=== PATIENT | female | born 1945 | race Caucasian/White ===

== ENCOUNTER 2017-01-13 16:37 | Emergency (ER) | payer MEDICARE, OTHER ==
[~2017-01-13] VITALS: Ht 167.6 cm; Wt 47.6 kg
[~2017-01-13 16:37] MED LIST: BACTRIM DS 8001 TA1 PO; BENADRYL ALLERG25 M1 PO; CHLORTHALIDONE50 MG PO; FOLIC ACID 1MG T1 MG PO; HYDROCODONE-APA1 TA1 PO; KEFLEX 500MG.500 MG PO; METHOTREXATE 22.5 MG PO; PREDNISONE 5MG.5 MG PO; PREDNISONE50 MG PO; ZANTAC 300300 MG PO
--- NOTE | 2017-01-13 16:57 | Emergency Room Report ---
History of Present Illness Time Seen by MD Diamond Presenting Problem in Triage Pt arrived:Walked Presenting Problem:PT STATES THAT SHE HAS BEEN TAKING 2 MEDICATIONS (NEURONTIN AND TRILEPTAL) FOR THE LAST MONTH AND A HALF AND IN THAT TIME SHE HAS BENE HAVING DIFFICULTY TAKING THEM DUE TO HER THROAT SWELLING. TODAY SHE THINKS THAT THE PROBLEM IS WORSE AND SHE FELLS THAT HER THROAT IS SELLING MORE Onset of symptoms date/time:01/13/17 or onset unknown for: Treatment Prior to Arrival: [facility] [employer] Provided by: Sepsis Risk Assessment: Temp: 98.4 B/P: 178/109 MAP: 132 Pulse: 94 Resp: 16 Recent fever? N Clinical Suspician of Infection? N Mental Status: 1 - Regular (Normal Baseline) Sepsis Risk:Low Sepsis Risk Have you (or family members/close friends) recently traveled outside the [place]? N If Yes, where/when: Have you had exposure to infectious disease within the past month? N TB? Other? Specify: Patient has been on oxcarbazepine for trigeminal neuralgia and is having difficulty swallowing her pills. Feels like her pills may be stuck, but not having shawn swelling, and no difficulty eating or drinking today. No edema to face or eyes, no vomiting, no SOB. Trigeminal neuralgia improving . No drooling. No prior hx of dysphagia. ALLERGIES Coded Allergies: No Known Allergies (06/27/16) Home Medications Reported Medications Prednisone (Prednisone 5MG) 5 MG PO DAILY FOLIC ACID (Folic Acid) 1 MG PO DAILY History Medical History General CAD? No Angina: No VA: No Hypertension? Yes Hyperlipidemia? Yes CHF? No DVT? No PE? No COPD? No Asthma? No Anemia? No GERD? No Gastric ulcers? No GI Bleed? No Hernia? No Thyroid Problems? No Hypothyroidism? No CVA? No Seizures? No Diabetes? No Renal Insuffiency? No End Stage Renal Disease? No UTI? No Stones? No BPH? No GB Disease: No Nephritic Syndrome? No Asplenia? No Hepatitis? No Sickle Cell Disease? No Arthritis? No Migraines? No Cataracts? No Glaucoma? No MRSA? No HIV? No TB? No Anxiety? No Depression? No Cancer? No Immunization Hx DT/Tetanus UNKNOWN Flu NEVER Pneumonia NEVER Surgical Hx Previous Surgery?Y COLONOSCOPY X 2 SKIN SPOTS REMOVED Family History Family Hx Diabetes No CAD Yes Hypertension Yes Hyperlipidemia No Cancer Yes TB Yes Social History Smoking Hx Smoker: Current Every Day Smoker Tobacco: Yes Type Cigarettes Packs/day < 1 Pack Alcohol Alcohol: No Review of Systems All Other Systems Reviewed and Negative Gastrointestinal see HPI Psychiatric/Neurological see HPI (no acute neuro changes) Physical Exam Vital Signs Vital Signs Date Time Temp Pulse Resp B/P Pulse O2 O2 Flow FiO2 Ox Delivery Rate 01/13 1652 98.4 01/13 1644 98.4 94 16 178/109 98 General Appearance normal appearance, WD/WN, no apparent distress Eye Exam - bilateral eye normal exam, bilateral eye PERRL Ear, Nose, Throat OP wet, no obstruction or edema, no FB noted. Neck normal inspection, non-tender, supple, full range of motion Respiratory Status Yes: trachea midline, chest symmetrical, non tender chest. No: respiratory distress, tender on palpation, use of accessory muscles, pain on inspiration, pain on expiration, productive cough, non productive cough. Lung Sounds bilateral: normal breath sounds, lungs clear. Cardiovascular normal exam, regular rate/rhythm, no peripheral edema, no gallop, no JVD, no murmur, no rub Extremities normal range of motion Neurologic alert, normal exam, no motor/sensory deficits, oriented x 3 (no drooling or dysphagia) Glascow Coma Scale Glascow Coma Scale Response Value EYE response: 4 Spontaneously 4 MOTOR response: 6 OBEYS 6 VERBAL response: 5 Oriented & Converses 5 Total 15 Skin intact, normal color Medical Decision Making LABS/Meds/Orders Pt receiving controlled substance in ED? No Results/Orders Orders Procedure Date/time Status NECK SOFT TISSUE 01/13 1703 Active XRAY/CT/US XRAY/CT/US XRAY chest (soft tissue neck) XR interpretation by reviewed by me (report reviewed) Xray Results normal/NAD (no radioopaque FB) Progress ED Progress Notes Date 01/13/17 Time 1733 Comment I consulted w/ pharmacy and it's ok for patient to split the oxcarbazepine for ease of swallowing Departure Departure Time of Disposition 1831 Disposition DC Home or Self Care(routine) Clinical Impression Primary Impression: Foreign body sensation in throat Condition STABLE Referrals Russell DODSON,A.C. (Family) Patient Instructions DI for Esophageal Dysphagia Additional Instructions Ok to split up your oxcarbazepine and place in pudding; see your family doctor for follow up Discharge Counseling Counseled pt/family regarding diagnosis, test results, medications/RX, home care, follow up needs ED Critical Care Critical Care No at [id number]
--- OUTSIDE RECORDS SUMMARY | 2017-01-13 17:17 | External Medical Summary Rpt ---
Author Author [employer] Organization [employer] Address Unknown Phone Unavailable Purpose Continuity of Care Document - through 2016
--- OUTSIDE RECORDS SUMMARY | 2017-01-13 17:17 | External Medical Summary Rpt ---
Demographics Preferred Language Estonian Marital Status Unknown Restorationist Affiliation Unknown Race Unknown Ethnic Group Unknown Author Author , ROSE ROSE Address Unknown Phone Immunization Unable to retrieve immunization data due to connection failure with Immunization Registry. Please try again later.
--- OUTSIDE RECORDS SUMMARY | 2017-01-13 17:17 | External Medical Summary Rpt ---
Author Author [employer] Whitney, [employer] Organization [employer] Address Unknown Phone Unavailable
--- OUTSIDE RECORDS SUMMARY | 2017-01-13 17:17 | External Medical Summary Rpt ---
Author Author , ROSE ROSE Address Unknown Phone [email or web address] Support Name Relationship Address Phone TARA, Next Of Kin [address], [phone] [place] [address] Purpose Continuity of Care Document - 02-18-2013 through 2016 Problems Code Diagnosis DOS Provider Status E83.42 Hypomagnese 11-28-2016 hank E87.6 Hypokalemia 11-28-2016 F17.210 Nicotine 11-28-2016 dependence, cigarettes, uncomplicat ed G50.0 Trigeminal 11-28-2016 neuralgia I10 Essential 11-28-2016 (primary) hypertensio n I67.1 Cerebral 11-28-2016 aneurysm, nonruptured M34.9 Systemic 11-28-2016 sclerosis, unspecified H53.8 OTHER 11-24-2016 VISUAL DISTURBANCE S H57.11 OCULAR 11-24-2016 PAIN, RIGHT EYE R51 HEADACHE 11-24-2016 Z91.040 LATEX 11-24-2016 ALLERGY STATUS Allergies, Adverse Reactions, Alerts Type Allergy to substance Adverse Reaction to Substance Substance Reaction Severity NO KNOWN ALLERGIES Unknown Unknown Medications Na ND Rx Da Fi Fi Am Da Di Ph RX Ph St me C No te ll ll ou ys ag ar # ys at rm s nt no ma ic us Or Da si cy ia de te s n re d GAINES 51 09 0 No LF 07 -0 AM 90 2- Lo ET 12 20 ng HO 82 13 er XA 0 ZO Ac LE ti -T ve MP DS TA BL ET CE 62 09 0 No PH 75 -0 AL 60 2- Lo EX 29 20 ng IN 48 13 er 8 50 Ac 0 ti MG ve CA PS UL E HY [address] 07 -0 OX 90 2- Lo YZ 07 20 ng IN 72 13 er E 0 PA Ac M ti 25 ve MG CA P Vital Signs 02-18-2013 14:58 Name Value Interpretat Reference Comment ion Range BP 93 mm[Hg] Diastolic BP Systolic 148 mm[Hg] Heart 94 /min Rate/Pulse O2% 98 % Respiratory 16 /min Rate 02-18-2013 14:57 Name Value Interpretat Reference Comment ion Range Body 97.6 [degF] Temperature BP 109 mm[Hg] Diastolic BP Systolic 159 mm[Hg] Heart 109 /min Rate/Pulse O2% 98 % Respiratory 16 /min Rate Results Labs Lab Lab Date Result Refere Interp Status Commen Order Detail nces retati t Range on 10OH-Carbazepine SerPl-mCnc (12-28-2016 09:54) 10OH-Ca 17.2 8.0-35. complet rbazepi 017 mcg/mL 0 ed ne 09:54 SerPl-m Cnc Magnesium SerPl-mCnc (11-21-2016 15:13) Magnesi 1.7 1.9-2.4 complet um 017 mg/dL ed SerPl-m 15:13 Cnc ESR Bld Qn (11-20-2016 08:51) ESR Bld 2 24 0-20 complet Qn 017 mm/hr ed 08:51 CRP SerPl-mCnc (11-20-2016 08:51) CRP 2 0.5 0-0.9 complet SerPl-m 017 mg/dL ed Cnc 08:51 Encounters Encounter Start End Date Code Location Performer Type Date Emergency HYACINTH Hendrix MD (ER) 3 13:59 3 14:59 [facility]
--- OUTSIDE RECORDS SUMMARY | 2017-01-13 17:17 | External Medical Summary Rpt ---
Demographics Preferred Language Urdu Marital Status Unknown Moravian Affiliation Unknown Race Unknown Ethnic Group Unknown Author Author , ROSE ROSE Address Unknown Phone Immunization Unable to retrieve immunization data due to connection failure with Immunization Registry. Please try again later.
--- OUTSIDE RECORDS SUMMARY | 2017-01-13 17:17 | External Medical Summary Rpt ---
Author Author , ROSE ROSE Address Unknown Phone [email or web address] Support Name Relationship Address Phone TARA, Next Of Kin [address], [phone] [place] [address] Purpose Continuity of Care Document - 02-18-2013 [...] Hendrix MD (ER) 3 13:59 3 14:59 [facility]
--- NOTE | 2017-01-13 18:22 | RADIOLOGY REPORT PS360 ---
NECK SOFT TISSUE HISTORY: Body evaluation feels like a pill may be stuck in her throat ORDERING PHYSICIAN: Kianna Velasquez MD PATIENT AGE: 71 years COMPARISON: None FINDINGS: AP lateral views of the neck are obtained showing no radio opaque foreign body apparent. No retropharyngeal soft tissue swelling or air-fluid level or soft tissue gas. Carotid artery calcifications are noted. There is cervical spondylosis with degenerative disc disease at C5-C6 and C6-C7. Blebs are present in the lung apices IMPRESSION: 1. No obvious radiopaque foreign body. 2. Cervical spondylosis. 3. Apical blebs
[2017-01-13 18:53] VITALS: BP 156/97
== END 2017-01-13 18:54 | disposition home or self-care (01) ==
LOC: ER 16:37
DX: R09.89 Other specified symptoms and signs involving the circulatory and respiratory systems (principal); I10 Essential (primary) hypertension; Z72.0 Tobacco use

== ENCOUNTER 2017-06-05 09:46 | Outpatient (CLI) | payer MEDICARE, OTHER ==
[~2017-06-05 09:46] MED LIST changes: +ADVIL200 M2 PO; +GABAPENTIN100 M1 PO; +OXCARBAZEPINE300 M2 PO
[2017-06-05 10:20] LABS: HEMOGLOBIN 14.8 g/dL (12.2-16.2); LYMPH % 9.4 % (10-50.0)
[2017-06-05 10:30] VITALS: BP 182/75
[2017-06-05 10:33] LABS: BUN 49 mg/dL (7-18)
[2017-06-05 10:39] LABS: GFR (ESTIMATED) 25 ML/MIN (59-)
[2017-06-05 11:00] VITALS: BP 169/72
[2017-06-05 11:30] VITALS: BP 144/76
[2017-06-05 12:00] VITALS: BP 146/79
[2017-06-05 12:35] VITALS: BP 148/77
[2017-06-05 13:08] VITALS: BP 177/96
[2017-06-06] MEDS ORDERED: LEVOFLOXACIN 5500 MG PO (20:50)
[2017-06-06] MEDS ORDERED: PROMETHAZINE D120 ML PO (20:52)
[2017-06-08] MEDS ORDERED: K-DUR 20MEQ TA20 MEQ PO (16:46)
== END 2017-06-05 12:35 | disposition home or self-care (01) ==
LOC: COP 09:46 → LAB 09:46 → COP 12:35
PROVIDERS: Nurse Practitioner Family
DX: E86.0 Dehydration (principal); J18.1 Lobar pneumonia, unspecified organism; J10.1 Influenza due to other identified influenza virus with other respiratory manifestations